=== PATIENT | female | born 1990 | race Caucasian/White ===

== ENCOUNTER 2016-12-12 16:38 | Emergency (ER) | payer OTHER ==
[~2016-12-12] VITALS: Ht 170.2 cm; Wt 58.7 kg
[~2016-12-12 16:38] MED LIST: ALBUTEROL SULF8.5 GM IH; AMOXI PO; AMOXICILLIN; BACTRIM,SEPT1 TABLET; CHEWABLE MULTI1 EACH PO; CHROMAGEN,1 CAPSULE PO; FLINTSTONES1 EACH PO; IBUPROFEN800 MG PO; KEFLEX500 MG PO; MISOPROSTOL200 MCG VG; MOTRIN800 MG PO; NAPROSYN500 MG PO; NOHOMEMEDS; NORCO 5/3251 TABLET PO; PROMETHAZINE HC25 M1 PO; TORADOL10 MG PO; TRAMADOL HCL50 MG; VENTOLIN HFA18 GM IH; VICODIN,LORT1 TABLET PO; VITRON C PO; VITRON-C TABLE1 EACH PO; ZANTAC150 MG; ZANTAC150 MG PO; ZOFRAN4 MG PO
[2016-12-12 17:21] LABS: EOSINOPHIL (%) 0 % (0-5); HEMATOCRIT 37.7 % (36.0-46.0); IMMATURE GRANULOCYTE (%) 0.2 % (0.0-0.7); IMMATURE GRANULOCYTE COUNT 0.2 K/uL; LYMPHOCYTE COUNT 0.7 K/uL (1.0-2.8); MCHC 34.7 G/DL (30.0-36.0); MCV 89.1 FL (83-99); MONOCYTE (%) 3.2 % (3-12); MONOCYTE COUNT 0.3 K/uL (0-0.8); NEUTROPHIL (%) 89.5 % (45-76); NEUTROPHIL COUNT 9.2 K/uL (1.8-6.4); PLATELET COUNT 248 K/uL (156-360); RBC DIS.WIDTH-CV 12.4 % (11.8-14.6); RBC DIS.WIDTH-SD 39.3 % (39-53); RED BLOOD COUNT 4.23 M/uL (3.80-5.20); WHITE BLOOD COUNT 10.3 K/uL (4.1-10.2)
[2016-12-12 17:32] LABS: CHLORIDE 112 mEq/L (99-109)
[2016-12-12 17:33] LABS: SODIUM 142 mEq/L (136-147)
[2016-12-12 17:34] LABS: GLUCOSE 93 mg/dL (70-99)
[2016-12-12 17:36] LABS: ANION GAP 10 MEQ/L (2-14)
[2016-12-12 17:37] LABS: SERUM ETHYL ALCOHOL < 10 mg/dL
[2016-12-12 17:38] LABS: GFR ESTIMATE (CALCULATED) > 59 mL/min/
[2016-12-12 17:39] LABS: UREA NITROGEN (BUN) 12 mg/dL (9-23)
[2016-12-12 17:46] LABS: QUANTITATIVE HCG < 4.0 MIU/ML
[2016-12-12 19:24] LABS: AMPHETAMINE NEGATIVE (500 ng/mL); BARBITURATES NEGATIVE (200 ng/mL); BENZODIAZEPINES NEGATIVE (150 ng/mL); COCAINE NEGATIVE (150 ng/mL); INTERNAL CONTROLS VALID? YES; METHADONE NEGATIVE (200 ng/mL); METHAMPHETAMINE NEGATIVE (500 ng/mL); OPIATES (MORPHINE) NEGATIVE (100 ng/mL); OXYCODONE NEGATIVE (100 ng/mL); PHENCYCLIDINE NEGATIVE (25 ng/mL); PROPOXYPHENE NEGATIVE (300 ng/mL); THC CANNABINOIDS NEGATIVE (50 ng/mL); TRICYCLIC ANTIDEPRESSANTS NEGATIVE (300 ng/mL)
[2016-12-12 20:10] VITALS: BP 131/70
== END 2016-12-12 20:10 | disposition home or self-care (01) ==
LOC: EME 16:38
PROVIDERS: Emergency Medicine
DX: R45.851 Suicidal ideations (principal); F32.9 Major depressive disorder, single episode, unspecified; J45.909 Unspecified asthma, uncomplicated; F41.9 Anxiety disorder, unspecified; R00.0 Tachycardia, unspecified; R01.1 Cardiac murmur, unspecified; K31.84 Gastroparesis; F43.10 Post-traumatic stress disorder, unspecified; F17.210 Nicotine dependence, cigarettes, uncomplicated
CPT/HCPCS: 80048; 84702; 85025; 90837; 99281; 99285; G0480

== ENCOUNTER 2016-12-20 01:39 | Emergency (ER) | payer OTHER ==
[~2016-12-20] VITALS: Ht 170.2 cm; Wt 58.9 kg
[2016-12-20 02:19] LABS: HEMATOCRIT 36.3 % (36.0-46.0); MCH 30.6 PG (29.0-34.0); MCHC 34.4 G/DL (30.0-36.0); MEAN PLAT.VOLUME 9.8 uM^3 (9.5-12.4); PLATELET COUNT 251 K/uL (156-360); RBC DIS.WIDTH-CV 12.3 % (11.8-14.6); RBC DIS.WIDTH-SD 39.2 % (39-53); RED BLOOD COUNT 4.08 M/uL (3.80-5.20)
[2016-12-20 02:30] LABS: CHLORIDE 110 mEq/L (99-109); POTASSIUM 3.8 mEq/L (3.7-5.4); SODIUM 143 mEq/L (136-147)
[2016-12-20 02:31] LABS: GLUCOSE 97 mg/dL (70-99)
[2016-12-20 02:33] LABS: ANION GAP 12 MEQ/L (2-14)
[2016-12-20 02:35] LABS: GFR ESTIMATE (CALCULATED) > 59 mL/min/
[2016-12-20 02:36] LABS: UREA NITROGEN (BUN) 13 mg/dL (9-23)
[2016-12-20 02:47] LABS: INFLUENZA A VIRAL ANTIGEN NEGATIVE; INFLUENZA B VIRAL ANTIGEN NEGATIVE
[2016-12-20] MEDS ORDERED: ZOFRAN ODT4 MG PO (02:56)
[2016-12-20] MEDS ORDERED: TESSALON PERLE100 MG PO (02:56)
[2016-12-20 03:22] VITALS: BP 113/59
== END 2016-12-20 03:25 | disposition home or self-care (01) ==
LOC: EME → EDBD 01:39 → EME 03:25
PROVIDERS: Emergency Medicine
DX: J06.9 Acute upper respiratory infection, unspecified (principal); R11.2 Nausea with vomiting, unspecified; E86.0 Dehydration; J45.909 Unspecified asthma, uncomplicated; K21.9 Gastro-esophageal reflux disease without esophagitis; F17.200 Nicotine dependence, unspecified, uncomplicated; Z71.6 Tobacco abuse counseling
CPT/HCPCS: 71010; 80048; 83605; 85027; 87502; 99281; 99284; J2405; J7030

== ENCOUNTER 2017-01-18 04:39 | Emergency (ER) | payer OTHER ==
[~2017-01-18] VITALS: Ht 170.2 cm; Wt 61.4 kg
[~2017-01-18 04:39] MED LIST changes: +TESSALON PERLE100 MG PO; +ZOFRAN ODT4 MG PO
[2017-01-18 05:09] LABS: HEMATOCRIT 39.4 % (36.0-46.0); MCH 30.8 PG (29.0-34.0); MCHC 34.5 G/DL (30.0-36.0); MCV 89.3 FL (83-99); MEAN PLAT.VOLUME 10.7 uM^3 (9.5-12.4); PLATELET COUNT 228 K/uL (156-360); RBC DIS.WIDTH-CV 12.5 % (11.8-14.6); RBC DIS.WIDTH-SD 39.8 % (39-53); RED BLOOD COUNT 4.41 M/uL (3.80-5.20); WHITE BLOOD COUNT 9.3 K/uL (4.1-10.2)
[2017-01-18 05:12] LABS: ADD MIUA? YES; BILIRUBIN NEGATIVE; BLOOD NEGATIVE; COLOR YELLOW ((YELLOW)); GLUCOSE (STRIP) NEGATIVE; KETONES 5; LEUKOCYTES NEGATIVE; NITRITE NEGATIVE; PROTEIN (STRIP) NEGATIVE; SPECIFIC GRAVITY 1.027 (1.000-1.030); UROBILINOGEN 0.2 MG/DL (0.2-1.0)
[2017-01-18 05:19] LABS: CHLORIDE 111 mEq/L (99-109); POTASSIUM 3.7 mEq/L (3.7-5.4); SODIUM 143 mEq/L (136-147)
[2017-01-18 05:22] LABS: GLUCOSE 98 mg/dL (70-99)
[2017-01-18 05:23] LABS: ANION GAP 8 MEQ/L (2-14)
[2017-01-18 05:24] LABS: TOTAL BILIRUBIN 0.3 mg/dL (0.0-1.0)
[2017-01-18 05:25] LABS: ALKALINE PHOSPHATASE 62 IU/L (3-129); GFR ESTIMATE (CALCULATED) > 59 mL/min/
[2017-01-18 05:26] LABS: UREA NITROGEN (BUN) 13 mg/dL (9-23)
[2017-01-18 05:27] LABS: BACTERIA 1+ /HPF; EPITHELIAL CELLS 1+ /HPF; HYALINE CASTS 0-5 /LPF; MUCUS 4+ /LPF; RED BLOOD CELLS 0-5 /HPF (0-5); UCUL ADDED? NO; WHITE BLOOD CELLS 0-5 /HPF (0-5)
[2017-01-18 05:29] LABS: LIPASE 32 U/L (1.0-51.0)
[2017-01-18 05:34] LABS: QUANTITATIVE HCG < 4.0 MIU/ML
[2017-01-18 06:24] VITALS: BP 109/63
== END 2017-01-18 06:36 | disposition home or self-care (01) ==
LOC: EME → EDBD 04:39 → EME 06:36
PROVIDERS: Emergency Medicine
DX: R10.9 Unspecified abdominal pain (principal); R11.2 Nausea with vomiting, unspecified; K31.84 Gastroparesis; K21.9 Gastro-esophageal reflux disease without esophagitis
CPT/HCPCS: 80053; 81003; 83690; 84702; 85027; 99281; 99284; C9113; J2270; J2405; J2765; J7030

== ENCOUNTER 2017-02-21 22:22 | Emergency (ER) | payer SELFPAY ==
[~2017-02-21] VITALS: Ht 170.2 cm; Wt 59.6 kg
[2017-02-22 00:19] LABS: INFLUENZA A VIRAL ANTIGEN NEGATIVE; INFLUENZA B VIRAL ANTIGEN POSITIVE
[2017-02-22 00:34] VITALS: BP 126/77
== END 2017-02-22 00:37 | disposition home or self-care (01) ==
LOC: EME 22:22
PROVIDERS: Physician Assistant
DX: J10.1 Influenza due to other identified influenza virus with other respiratory manifestations (principal); J45.909 Unspecified asthma, uncomplicated; F17.200 Nicotine dependence, unspecified, uncomplicated
CPT/HCPCS: 87502; 99281; 99283

== ENCOUNTER 2017-12-21 00:36 | Emergency (ER) | payer OTHER ==
[~2017-12-21] VITALS: Ht 170.2 cm; Wt 57.7 kg
[2017-12-21 03:00] VITALS: BP 111/68
== END 2017-12-21 03:01 | disposition home or self-care (01) ==
LOC: EME 00:36
DX: S60.211A Contusion of right wrist, initial encounter (principal); F41.9 Anxiety disorder, unspecified; F32.9 Major depressive disorder, single episode, unspecified; F43.10 Post-traumatic stress disorder, unspecified; F17.200 Nicotine dependence, unspecified, uncomplicated; Y04.2XXA Assault by strike against or bumped into by another person, initial encounter; Y07.01 Husband, perpetrator of maltreatment and neglect; Z88.5 Allergy status to narcotic agent; Z88.8 Allergy status to other drugs, medicaments and biological substances
CPT/HCPCS: 71046; 73110; 93005; 99281; 99284

== ENCOUNTER 2018-01-11 01:58 | Emergency (ER) | payer OTHER ==
[~2018-01-11] VITALS: Ht 170.2 cm; Wt 58.6 kg
[2018-01-11 02:09] VITALS: BP 126/78
== END 2018-01-11 02:43 | disposition left against medical advice (07) ==
LOC: EME 01:58
DX: R07.9 Chest pain, unspecified (principal); Z53.21 Procedure and treatment not carried out due to patient leaving prior to being seen by health care provider
CPT/HCPCS: 93005

== ENCOUNTER 2018-02-18 01:40 | Emergency (ER) | payer OTHER ==
[~2018-02-18] VITALS: Ht 170.2 cm; Wt 61.2 kg
[2018-02-18] MEDS ORDERED: NORCO 5/3251 TABLET PO (03:41)
[2018-02-18 04:11] VITALS: BP 110/59
== END 2018-02-18 04:12 | disposition home or self-care (01) ==
LOC: EME 01:40
PROC: 3E0T3BZ Introduction of Anesthetic Agent into Peripheral Nerves and Plexi, Percutaneous Approach (ICD-10-PCS; principal; 2018-02-18)
DX: K08.89 Other specified disorders of teeth and supporting structures (principal); K04.7 Periapical abscess without sinus; R51 Headache; K03.81 Cracked tooth; J45.909 Unspecified asthma, uncomplicated; F17.200 Nicotine dependence, unspecified, uncomplicated
CPT/HCPCS: 99281; 99284

== ENCOUNTER 2018-04-04 16:56 | Emergency (ER) | payer OTHER ==
[~2018-04-04] VITALS: Ht 170.2 cm; Wt 57.1 kg
[2018-04-04] MEDS ORDERED: KEFLEX500 MG PO (20:56)
[2018-04-04 21:12] VITALS: BP 115/82
== END 2018-04-04 21:13 | disposition home or self-care (01) ==
LOC: EXP 16:56 → EME 16:56 → EXP 21:13
PROC: 2W3JX1Z Immobilization of Right Finger using Splint (ICD-10-PCS; principal; 2018-04-04)
PROC: 3E0234Z Introduction of Serum, Toxoid and Vaccine into Muscle, Percutaneous Approach (ICD-10-PCS; principal; 2018-04-04)
PROC: 0HQFXZZ Repair Right Hand Skin, External Approach (ICD-10-PCS; principal; 2018-04-04)
DX: S61.216A Laceration without foreign body of right little finger without damage to nail, initial encounter (principal); W26.8XXA Contact with other sharp object(s), not elsewhere classified, initial encounter; Y93.89 Activity, other specified; Z23 Encounter for immunization; J45.909 Unspecified asthma, uncomplicated; K21.9 Gastro-esophageal reflux disease without esophagitis; F32.9 Major depressive disorder, single episode, unspecified; F41.9 Anxiety disorder, unspecified; F17.200 Nicotine dependence, unspecified, uncomplicated; Z88.5 Allergy status to narcotic agent; Z88.8 Allergy status to other drugs, medicaments and biological substances
CPT/HCPCS: 73140; 99281; 99284; S0020